=== PATIENT | male | born 2000 | race Caucasian/White ===

== ENCOUNTER 2020-12-23 14:44 | Emergency (ER) | payer OTHER ==
[2020-12-23 15:07] VITALS: BP 114/75; PULSE 67; TEMP 98.1; BMI 23.1
[2020-12-23] MEDS ORDERED: KETOROLAC TROMETHAMINE 60 MG/2 ML VIAL IM ONE (15:34)
[2020-12-23] MEDS ORDERED: KETOROLAC TROMETHAMINE 60 MG/2 ML VIAL ONE (15:37)
== END 2020-12-23 16:00 | disposition home or self-care (01) ==
LOC: JERFT 14:44
PROC: 3E0233Z Introduction of Anti-inflammatory into Muscle, Percutaneous Approach (ICD-10-PCS; principal; 2020-12-23)
DX: J02.0 Streptococcal pharyngitis (principal)
CPT/HCPCS: 99284-25

== ENCOUNTER 2022-05-03 14:23 | Emergency (ER) | payer OTHER ==
[2022-05-03 14:28] VITALS: BP 148/93; PULSE 104; RESP 17; TEMP 97.8; BMI 28.2
[2022-05-03] MEDS ORDERED: DIPHTH,PERTUSS(ACELL),TET 0.5 ML DISP.SYRIN IM ONE (15:27)
[2022-05-03] MEDS ORDERED: IBUPROFEN 400 MG TABLET (FP) PO ONE (15:29)
== END 2022-05-03 16:25 | disposition home or self-care (01) ==
LOC: JERFT 14:23 → JER 14:23 → JERFT 16:25
DX: S99.911A Unspecified injury of right ankle, initial encounter (principal)
CPT/HCPCS: 73610-TC-RT-FY; 73630-TC-RT-FY; 99284-25